=== PATIENT | male | born 1940 | race Two or more races ===

== ENCOUNTER 2021-12-16 11:50 | Inpatient (IN) | payer OTHER, MEDICAID ==
[~2021-12-16] VITALS: Ht 175.3 cm; Wt 88.5 kg
[2021-12-16] MEDS ORDERED: LOVA20TA4 PO (12:51)
[2021-12-16] MEDS ORDERED: LISI40TA11 PO (12:52)
[2021-12-16] MEDS ORDERED: METO-159 PO (12:54)
[2021-12-16] MEDS ORDERED: AMLO-489 PO (12:55)
[2021-12-16] MEDS ORDERED: METF-370 PO ×2 (12:56→13:00)
[2021-12-16] MEDS ORDERED: GABA250S2 PO (12:58)
[2021-12-16 13:05] LABS: Basophils # (auto) 0 10 ^3/uL (0-0.2); Basophils % (auto) 0.4 % (0.0-2.0); Eosinophils # (auto) 0.1 10 ^3/uL (0-0.8); Eosinophils % (auto) 0.5 % (0.0-7.0); Hematocrit 39.8 % (41.0-53.0); Hemoglobin 13.3 g/dL (13.5-17.5); Mean Corpuscular Hemoglobin 30.6 pg (28.0-32.0); Mean Corpuscular Hgb Conc. 33.5 g/dL (32.0-36.0); Mean Corpuscular Volume 91.2 fL (80.0-100.0); Monocytes # (auto) 0.7 10 ^3/uL (0-1.3); Monocytes % (auto) 6.8 % (0.0-12.0); Neutrophils # (auto) 7.8 10 ^3/uL (1.6-8.6); Neutrophils % (auto) 73.3 % (37.0-80.0); Red Blood Cells 4.36 10^6/uL (4.5-5.90); Red Cell Distribution Width 14.1 % (11.8-14.3); White Blood Cell 10.7 10^3/uL (4.4-10.8)
[2021-12-16 13:08] LABS: Albumin 3.5 g/dL (3.4-5.0); Calcium 9.1 mg/dL (8.5-10.1); Magnesium 2.2 mg/dL (1.6-2.6); Potassium 3.6 mmol/L (3.5-5.1)
[2021-12-16 13:14] LABS: BUN/Creatinine Ratio 19.1; Bilirubin, Total 0.4 mg/dL (0.2-1.0); Total Protein 6.6 g/dL (6.4-8.2)
[2021-12-16] MEDS ORDERED: cefTRIAXone 1GM/50ML D5W 50 ML IV ONE (17:30)
[2021-12-16] MEDS ORDERED: AZITHROMYCIN 500MG/ 250ML 250 ML IV ONE (17:30)
[2021-12-16] MEDS ORDERED: LEVO750T64 PO (18:57)
[2021-12-16] MEDS ORDERED: IOHEXOL 350 MG/ML 100ML IJ ONE ×2 (21:01→21:28)
[2021-12-17] MEDS ORDERED: HYDROcodone-ACET 5/325MG TAB PO PRN (09:15)
[2021-12-17] MEDS ORDERED: NITROGLYCERIN 0.4 MG SL TAB SL PRN (09:15)
[2021-12-17] MEDS ORDERED: ONDANSETRON HCL 4 MG/2 ML VIAL IV PRN (09:15)
[2021-12-17] MEDS ORDERED: ACETAMINOPHEN 325 MG TAB PO PRN ×2 (09:15)
[2021-12-17] MEDS ORDERED: MORPHINE SULFATE 4 MG/ML SYR/VIAL IV PRN (09:15)
[2021-12-17] MEDS ORDERED: cefTRIAXone 1GM/50ML D5W 50 ML IV ONE (09:30)
[2021-12-17] MEDS ORDERED: ALBUTEROL SULF 2.5 MG/0.5ML(0.5%) NEB SOLN NEB PRN (09:30)
[2021-12-17] MEDS ORDERED: hydrALAZINE HCL 20 MG/ML VL IV PRN (09:30)
[2021-12-17] MEDS ORDERED: DEXTROSE (50%) 50ML SYRG IV PRN (09:30)
[2021-12-17] MEDS ORDERED: IPRATROPIUM BROM 0.5 MG/2.5ML INH SOL NEB PRN (09:30)
[2021-12-17] MEDS: DOXYCYCLINE 100MG/250ML 250 ML IV SCH ×2 (10:00→22:16)
[2021-12-17] MEDS: ENOXAPARIN SOD 40 MG/0.4 ML SYRINGE SC SCH (10:00)
[2021-12-17] MEDS ORDERED: PATIENTS OWN MEDICATION (Metoprolol Tartrate 100 MG) PO SCH (10:00)
[2021-12-17] MEDS ORDERED: AZITHROMYCIN 500MG/ 250ML 250 ML IV SCH (10:00)
[2021-12-17 10:05] VITALS: BP 184/78
[2021-12-17] MEDS: GABAPENTIN 100 MG CAP PO SCH (10:09)
[2021-12-17] MEDS: amLODIPine BESYLATE 5 MG TAB PO SCH (10:09)
[2021-12-17] MEDS: LISINOPRIL 20 MG TAB PO SCH (10:10)
[2021-12-17 10:14] LABS: Calcium 8.9 mg/dL (8.5-10.1); Potassium 4.2 mmol/L (3.5-5.1)
[2021-12-17 10:17] LABS: BUN/Creatinine Ratio 13.7
[2021-12-17 10:35] LABS: Basophils # (auto) 0 10 ^3/uL (0-0.2); Basophils % (auto) 0.5 % (0.0-2.0); Eosinophils # (auto) 0 10 ^3/uL (0-0.8); Eosinophils % (auto) 0.4 % (0.0-7.0); Hematocrit 39.3 % (41.0-53.0); Hemoglobin 13.3 g/dL (13.5-17.5); Lymphocytes # (auto) 1.5 10 ^3/uL (0.4-5.4); Lymphocytes % (auto) 14.6 % (10.0-50.0); Mean Corpuscular Hemoglobin 30.9 pg (28.0-32.0); Mean Corpuscular Hgb Conc. 33.9 g/dL (32.0-36.0); Monocytes # (auto) 0.8 10 ^3/uL (0-1.3); Monocytes % (auto) 7.8 % (0.0-12.0); Neutrophils # (auto) 7.9 10 ^3/uL (1.6-8.6); Neutrophils % (auto) 76.7 % (37.0-80.0); Red Blood Cells 4.32 10^6/uL (4.5-5.90); Red Cell Distribution Width 13.7 % (11.8-14.3); White Blood Cell 10.3 10^3/uL (4.4-10.8)
[2021-12-17 10:56] LABS: INR 1.2 (0.9-1.15); Partial Thromboplastin Time 28.3 sec (23.6-33.0)
[2021-12-17 10:57] LABS: Cholesterol 117 mg/dL (< 200); Triglycerides 70 mg/dL (< 150)
[2021-12-17 11:00] LABS: HDL Cholesterol 57 mg/dL (40-59); LDL Cholesterol 53 mg/dL (< 100)
[2021-12-17] MEDS: IPRATROPIUM BROM 0.5 MG/2.5ML INH SOL NEB SCH ×2 (11:57→19:14)
[2021-12-17] MEDS: ALBUTEROL SULF 2.5 MG/0.5ML(0.5%) NEB SOLN NEB SCH ×2 (11:57→19:14)
[2021-12-17 11:59] VITALS: BP 148/72
[2021-12-17] MEDS: InsuLIN REG 1unit/0.01ml Soln (100units/ml) SC SCH ×3 (12:27→22:16)
[2021-12-17] MEDS: ACCU-CHEK COMFORT CURVE STRIP VI SCH ×3 (12:27→22:18)
[2021-12-17 13:00] VITALS: BP 153/73
[2021-12-17] MEDS: SODIUM CHLOR 0.9% PF (SALINE LOCK) 10ML VIAL/SYR IV SCH ×2 (13:01→22:16)
[2021-12-17] MEDS ORDERED: LIDOCAINE 2%HCL (LOCAL ANESTH.) INJ 10ml MDV ONE (14:54)
[2021-12-17 17:00] VITALS: BP 192/80
[2021-12-17 18:36] VITALS: BP 168/72
[2021-12-17] MEDS ORDERED: TEMAZEPAM 15 MG CAP PO PRN (22:00)
[2021-12-17 22:14] VITALS: BP 153/74
[2021-12-17] MEDS: ATORVASTATIN 20 MG TAB PO SCH (22:16)
[2021-12-18 03:58] VITALS: BP 165/87
[2021-12-18] MEDS: SODIUM CHLOR 0.9% PF (SALINE LOCK) 10ML VIAL/SYR IV SCH ×3 (06:00→22:10)
[2021-12-18] MEDS: InsuLIN REG 1unit/0.01ml Soln (100units/ml) SC SCH ×4 (06:13→22:00)
[2021-12-18] MEDS: ACCU-CHEK COMFORT CURVE STRIP VI SCH ×4 (06:13→22:10)
[2021-12-18 06:36] LABS: Basophils # (auto) 0 10 ^3/uL (0-0.2); Basophils % (auto) 0.2 % (0.0-2.0); Eosinophils # (auto) 0.1 10 ^3/uL (0-0.8); Eosinophils % (auto) 0.5 % (0.0-7.0); Hematocrit 37.9 % (41.0-53.0); Hemoglobin 13.3 g/dL (13.5-17.5); Lymphocytes # (auto) 1.6 10 ^3/uL (0.4-5.4); Lymphocytes % (auto) 12.1 % (10.0-50.0); Mean Corpuscular Hemoglobin 31.5 pg (28.0-32.0); Mean Corpuscular Volume 90.2 fL (80.0-100.0); Monocytes # (auto) 0.9 10 ^3/uL (0-1.3); Neutrophils # (auto) 10.6 10 ^3/uL (1.6-8.6); Neutrophils % (auto) 80.2 % (37.0-80.0); Nucleated Red Blood Cells % 0.1 %; Red Cell Distribution Width 13.7 % (11.8-14.3); White Blood Cell 13.3 10^3/uL (4.4-10.8)
[2021-12-18 06:55] LABS: Potassium 3.1 mmol/L (3.5-5.1)
[2021-12-18 07:06] LABS: Albumin 3.3 g/dL (3.4-5.0); BUN/Creatinine Ratio 13.1; Bilirubin, Total 0.7 mg/dL (0.2-1.0); Calcium 8.7 mg/dL (8.5-10.1); Total Protein 6.3 g/dL (6.4-8.2)
[2021-12-18] MEDS: ALBUTEROL SULF 2.5 MG/0.5ML(0.5%) NEB SOLN NEB SCH ×3 (07:32→18:33)
[2021-12-18 09:00] VITALS: BP 170/73
[2021-12-18] MEDS: GABAPENTIN 100 MG CAP PO SCH (09:54)
[2021-12-18] MEDS: LISINOPRIL 20 MG TAB PO SCH (09:54)
[2021-12-18] MEDS: amLODIPine BESYLATE 5 MG TAB PO SCH (09:55)
[2021-12-18] MEDS: DOXYCYCLINE 100MG/250ML 250 ML IV SCH ×2 (09:56→22:16)
[2021-12-18] MEDS: ENOXAPARIN SOD 40 MG/0.4 ML SYRINGE SC SCH (09:56)
[2021-12-18] MEDS: POTASSIUM CHL 20 Meq TABLET PO SCH (12:21)
[2021-12-18 13:00] VITALS: BP 160/63
[2021-12-18] MEDS: cefTRIAXone 1GM/50ML D5W 50 ML IV SCH (14:10)
[2021-12-18 17:00] VITALS: BP 149/69
[2021-12-18] MEDS: FUROSEMIDE 40 MG/4 ML VIAL IV SCH (17:49)
[2021-12-18] MEDS: IPRATROPIUM BROM 0.5 MG/2.5ML INH SOL NEB SCH (18:33)
[2021-12-18 21:49] VITALS: BP 160/66
[2021-12-18] MEDS: APIXABAN 5 MG TAB PO SCH (22:16)
[2021-12-18] MEDS: ATORVASTATIN 20 MG TAB PO SCH (22:16)
[2021-12-19 05:21] VITALS: BP 154/58
[2021-12-19] MEDS: FUROSEMIDE 40 MG/4 ML VIAL IV SCH ×2 (06:00→18:18)
[2021-12-19] MEDS: SODIUM CHLOR 0.9% PF (SALINE LOCK) 10ML VIAL/SYR IV SCH ×3 (06:00→21:46)
[2021-12-19] MEDS: ACCU-CHEK COMFORT CURVE STRIP VI SCH ×4 (06:33→21:46)
[2021-12-19] MEDS: InsuLIN REG 1unit/0.01ml Soln (100units/ml) SC SCH ×4 (06:41→21:46)
[2021-12-19] MEDS: ALBUTEROL SULF 2.5 MG/0.5ML(0.5%) NEB SOLN NEB SCH ×3 (06:44→18:52)
[2021-12-19] MEDS: IPRATROPIUM BROM 0.5 MG/2.5ML INH SOL NEB SCH ×3 (06:44→18:52)
[2021-12-19 07:49] LABS: Basophils # (auto) 0 10 ^3/uL (0-0.2); Basophils % (auto) 0.3 % (0.0-2.0); Eosinophils # (auto) 0.2 10 ^3/uL (0-0.8); Eosinophils % (auto) 1.3 % (0.0-7.0); Hematocrit 36.3 % (41.0-53.0); Hemoglobin 12.5 g/dL (13.5-17.5); Mean Corpuscular Hemoglobin 30.6 pg (28.0-32.0); Mean Corpuscular Hgb Conc. 34.3 g/dL (32.0-36.0); Mean Corpuscular Volume 89.1 fL (80.0-100.0); Monocytes # (auto) 1.3 10 ^3/uL (0-1.3); Neutrophils # (auto) 9.1 10 ^3/uL (1.6-8.6); Neutrophils % (auto) 72.4 % (37.0-80.0); Red Blood Cells 4.07 10^6/uL (4.5-5.90); Red Cell Distribution Width 13.5 % (11.8-14.3); White Blood Cell 12.6 10^3/uL (4.4-10.8)
[2021-12-19 07:57] LABS: Calcium 8.6 mg/dL (8.5-10.1); Potassium 3.4 mmol/L (3.5-5.1)
[2021-12-19 07:59] LABS: BUN/Creatinine Ratio 13.8
[2021-12-19 08:53] VITALS: BP 145/74
[2021-12-19] MEDS: cefTRIAXone 1GM/50ML D5W 50 ML IV SCH (09:00)
[2021-12-19] MEDS ORDERED: POTASSIUM CHL 10MEQ/50ML 50 ML IV SCH (09:30)
[2021-12-19] MEDS ORDERED: hydrALAZINE HCL 20 MG/ML VL IV PRN (09:30)
[2021-12-19] MEDS: amLODIPine BESYLATE 5 MG TAB PO SCH (10:00)
[2021-12-19] MEDS: GABAPENTIN 100 MG CAP PO SCH (10:00)
[2021-12-19] MEDS: APIXABAN 5 MG TAB PO SCH ×2 (10:00→21:53)
[2021-12-19] MEDS: POTASSIUM CHL 20 Meq TABLET PO SCH (10:00)
[2021-12-19] MEDS: DOXYCYCLINE 100MG/250ML 250 ML IV SCH ×2 (10:00→22:00)
[2021-12-19] MEDS: LISINOPRIL 20 MG TAB PO SCH (10:00)
[2021-12-19 13:35] VITALS: BP 147/80
[2021-12-19 16:42] VITALS: BP 103/52
[2021-12-19] MEDS ORDERED: TAMSULOSIN HYDROCHLORIDE 0.4 MG CAP PO SCH (18:00)
[2021-12-19] MEDS: POTASSIUM CHL 20MEQ/100ML 100 ML IV SCH ×2 (21:00→21:34)
[2021-12-19] MEDS: ATORVASTATIN 20 MG TAB PO SCH (21:53)
[2021-12-19 22:00] VITALS: BP 119/59
[2021-12-20 05:00] VITALS: BP 142/62
[2021-12-20] MEDS: ACCU-CHEK COMFORT CURVE STRIP VI SCH ×2 (06:09→11:30)
[2021-12-20] MEDS: FUROSEMIDE 40 MG/4 ML VIAL IV SCH (06:23)
[2021-12-20] MEDS: InsuLIN REG 1unit/0.01ml Soln (100units/ml) SC SCH ×2 (06:24→11:30)
[2021-12-20] MEDS: SODIUM CHLOR 0.9% PF (SALINE LOCK) 10ML VIAL/SYR IV SCH ×2 (06:29→14:00)
[2021-12-20 06:31] LABS: INR 1.21 (0.9-1.15); Partial Thromboplastin Time 35.1 sec (23.6-33.0)
[2021-12-20 06:34] LABS: Basophils # (auto) 0 10 ^3/uL (0-0.2); Basophils % (auto) 0.4 % (0.0-2.0); Eosinophils # (auto) 0.2 10 ^3/uL (0-0.8); Eosinophils % (auto) 2.2 % (0.0-7.0); Hematocrit 33.3 % (41.0-53.0); Hemoglobin 11.8 g/dL (13.5-17.5); Lymphocytes # (auto) 2.1 10 ^3/uL (0.4-5.4); Lymphocytes % (auto) 22.6 % (10.0-50.0); Mean Corpuscular Hemoglobin 31.2 pg (28.0-32.0); Mean Corpuscular Hgb Conc. 35.3 g/dL (32.0-36.0); Mean Corpuscular Volume 88.3 fL (80.0-100.0); Monocytes # (auto) 1.2 10 ^3/uL (0-1.3); Monocytes % (auto) 12.3 % (0.0-12.0); Neutrophils # (auto) 5.9 10 ^3/uL (1.6-8.6); Neutrophils % (auto) 62.5 % (37.0-80.0); Red Blood Cells 3.77 10^6/uL (4.5-5.90); Red Cell Distribution Width 13.6 % (11.8-14.3); White Blood Cell 9.4 10^3/uL (4.4-10.8)
[2021-12-20 06:35] LABS: BUN/Creatinine Ratio 16.7; Calcium 7.9 mg/dL (8.5-10.1); Magnesium 2.1 mg/dL (1.6-2.6); Potassium 3.8 mmol/L (3.5-5.1)
[2021-12-20] MEDS: ALBUTEROL SULF 2.5 MG/0.5ML(0.5%) NEB SOLN NEB SCH ×2 (07:12→11:24)
[2021-12-20] MEDS: IPRATROPIUM BROM 0.5 MG/2.5ML INH SOL NEB SCH ×2 (07:12→11:24)
[2021-12-20] MEDS: cefTRIAXone 1GM/50ML D5W 50 ML IV SCH (09:00)
[2021-12-20 09:30] VITALS: BP 149/54
[2021-12-20] MEDS: APIXABAN 5 MG TAB PO SCH (09:31)
[2021-12-20] MEDS: GABAPENTIN 100 MG CAP PO SCH (09:32)
[2021-12-20] MEDS: POTASSIUM CHL 20 Meq TABLET PO SCH (09:32)
[2021-12-20] MEDS: LISINOPRIL 20 MG TAB PO SCH (09:33)
[2021-12-20] MEDS: amLODIPine BESYLATE 5 MG TAB PO SCH (09:33)
[2021-12-20] MEDS: DOXYCYCLINE 100MG/250ML 250 ML IV SCH (10:57)
[2021-12-20 13:00] VITALS: BP 121/85
[2021-12-20 16:56] VITALS: BP 146/81
[2021-12-20 17:14] VITALS: BP 134/59
== END 2021-12-20 18:19 | disposition home health service (06) | DRG 291 ==
LOC: ER 11:50 → TELE 12-17 09:01 → TELE-WESTW 12-17 11:20
PROVIDERS: ADMIT Registered Nurse; ATTEND Internal Medicine
DX: I11.0 Hypertensive heart disease with heart failure (principal); I50.33 Acute on chronic diastolic (congestive) heart failure; J98.11 Atelectasis; E11.9 Type 2 diabetes mellitus without complications; E87.6 Hypokalemia; E78.00 Pure hypercholesterolemia, unspecified; E78.5 Hyperlipidemia, unspecified; I48.91 Unspecified atrial fibrillation; T50.2X5A Adverse effect of carbonic-anhydrase inhibitors, benzothiadiazides and other diuretics, initial encounter; R00.1 Bradycardia, unspecified; Z20.822 Contact with and (suspected) exposure to COVID-19; N40.1 Benign prostatic hyperplasia with lower urinary tract symptoms; R33.8 Other retention of urine; Y92.89 Other specified places as the place of occurrence of the external cause; Z79.899 Other long term (current) drug therapy; Z79.84 Long term (current) use of oral hypoglycemic drugs
CPT/HCPCS: 36415; 36600; 71045; 71046; 71275; 80048; 80053; 80061; 82805; 82962; 83036; 83735; 83880; 84100; 84443; 84484; 85025; 85379; 85610; 85730; 87040; 93005; 93306; 93886; 93970; 94640; 96365; 96367; G0378; J0696; J1815; J2001; J3480; J3490

== ENCOUNTER 2022-02-02 11:49 | Inpatient (IN) | payer OTHER, MEDICAID ==
[~2022-02-02] VITALS: Ht 175.3 cm; Wt 93.8 kg
[~2022-02-02 11:49] MED LIST: AMLO-489 PO; GABA250S2 PO; LISI40TA11 PO; LOVA20TA4 PO; METF-370 PO
[2022-02-02] MEDS ORDERED: SODIUM CHLORIDE 0.9% 1,000 ML IV ONE (12:45)
[2022-02-02 12:58] LABS: Basophils # (auto) 0 10 ^3/uL (0-0.2); Basophils % (auto) 0.2 % (0.0-2.0); Eosinophils # (auto) 0 10 ^3/uL (0-0.8); Eosinophils % (auto) 0.1 % (0.0-7.0); Hematocrit 40.7 % (41.0-53.0); Lymphocytes # (auto) 0.8 10 ^3/uL (0.4-5.4); Lymphocytes % (auto) 5.5 % (10.0-50.0); Mean Corpuscular Hemoglobin 29.9 pg (28.0-32.0); Mean Corpuscular Volume 93.5 fL (80.0-100.0); Monocytes # (auto) 0.5 10 ^3/uL (0-1.3); Monocytes % (auto) 3.9 % (0.0-12.0); Neutrophils # (auto) 12.7 10 ^3/uL (1.6-8.6); Neutrophils % (auto) 90.3 % (37.0-80.0); Red Blood Cells 4.35 10^6/uL (4.5-5.90); Red Cell Distribution Width 13.9 % (11.8-14.3); White Blood Cell 14.1 10^3/uL (4.4-10.8)
[2022-02-02 13:05] LABS: Urine Bacteria NONE SEEN /hpf (None Seen); Urine Blood 3+ /uL (Negative); Urine Specific Gravity 1.014 (1.001-1.035); Urine WBC 3573 /hpf (0 - 3); Urine WBC Clumps PRESENT /hpf (None Seen)
[2022-02-02 13:20] LABS: Albumin 1.8 g/dL (3.4-5.0); Calcium 8.9 mg/dL (8.5-10.1); Magnesium 2.7 mg/dL (1.6-2.6); Potassium 5.1 mmol/L (3.5-5.1)
[2022-02-02 13:23] LABS: Bilirubin, Total 0.3 mg/dL (0.2-1.0); Total Protein 5.6 g/dL (6.4-8.2)
[2022-02-02 13:52] LABS: BUN/Creatinine Ratio 17.8
[2022-02-02] MEDS ORDERED: cefTRIAXone 1GM/50ML D5W 50 ML IV ONE ×2 (17:30→18:30)
[2022-02-02] MEDS ORDERED: InsuLIN REG 1unit/0.01ml Soln (100units/ml) IV ONE (17:30)
[2022-02-02] MEDS ORDERED: MORPHINE SULFATE INJECTION 2 MG/ML SYRG IV PRN ×2 (18:00→18:30)
[2022-02-02] MEDS ORDERED: SODIUM CHLORIDE 0.9% 1,000 ML IV SCH ×3 (18:00→22:00)
[2022-02-02] MEDS ORDERED: INSULIN LANTUS (GLARGINE) 1 /0.01ml (100units/ml) SC ONE (18:00)
[2022-02-02] MEDS ORDERED: SODIUM CHLORIDE 0.9% 2,000 ML IV ONE (18:00)
[2022-02-02] MEDS ORDERED: InsuLIN R (HUMAN) 100 UNITS in SODIUM CHL 0.9% 99 ML IV SCH (18:00)
[2022-02-02] MEDS ORDERED: NITROGLYCERIN 0.4 MG SL TAB SL PRN (18:00)
[2022-02-02] MEDS ORDERED: DEXTROSE (50%) 50ML SYRG IV PRN (18:00)
[2022-02-02] MEDS ORDERED: LACTATED RINGER'S 2,000 ML IV ONE (18:00)
[2022-02-02] MEDS: ACCU-CHEK COMFORT CURVE STRIP VI SCH ×5 (18:18→23:58)
[2022-02-02] MEDS ORDERED: LORazepam 0.5 MG TAB PO PRN (18:30)
[2022-02-02] MEDS ORDERED: ACETAMINOPHEN 325 MG TAB PO PRN (18:30)
[2022-02-02] MEDS ORDERED: FAMOTIDINE (10MG/ML) 2ML VL IV ONE (18:30)
[2022-02-02] MEDS ORDERED: hydrALAZINE HCL 20 MG/ML VL IV PRN (18:30)
[2022-02-02] MEDS ORDERED: SOD CHL 0.9%/ KCL 20MEQ 1,000 ML IV PRN (18:30)
[2022-02-02] MEDS ORDERED: AZITHROMYCIN 500MG/ 250ML 250 ML IV ONE (18:30)
[2022-02-02] MEDS ORDERED: ONDANSETRON HCL 4 MG/2 ML VIAL IV PRN (18:30)
[2022-02-02] MEDS ORDERED: DOCUSATE SOD 100 MG CAP PO PRN (18:30)
[2022-02-02] MEDS ORDERED: LABETALOL HCL 5 MG/ML 4ML SYRINGE IV PRN (18:45)
[2022-02-02 19:31] LABS: Magnesium 2.8 mg/dL (1.6-2.6); Phosphorus 3.3 mg/dL (2.5-4.90); Potassium 4.5 mmol/L (3.5-5.1)
[2022-02-02 19:33] LABS: Basophils # (auto) 0 10 ^3/uL (0-0.2); Basophils % (auto) 0.2 % (0.0-2.0); Eosinophils # (auto) 0 10 ^3/uL (0-0.8); Eosinophils % (auto) 0.1 % (0.0-7.0); Hematocrit 39.6 % (41.0-53.0); Hemoglobin 12.9 g/dL (13.5-17.5); Lymphocytes % (auto) 6.4 % (10.0-50.0); Mean Corpuscular Hemoglobin 29.6 pg (28.0-32.0); Mean Corpuscular Hgb Conc. 32.6 g/dL (32.0-36.0); Mean Corpuscular Volume 90.9 fL (80.0-100.0); Monocytes # (auto) 0.7 10 ^3/uL (0-1.3); Monocytes % (auto) 4.7 % (0.0-12.0); Neutrophils # (auto) 13.8 10 ^3/uL (1.6-8.6); Neutrophils % (auto) 88.6 % (37.0-80.0); Nucleated Red Blood Cells % 0.1 %; Red Blood Cells 4.36 10^6/uL (4.5-5.90); Red Cell Distribution Width 13.6 % (11.8-14.3); White Blood Cell 15.6 10^3/uL (4.4-10.8)
[2022-02-02 19:34] LABS: Lactic Acid w/Reflex 3.2 mmol/L (0.4-2.0)
[2022-02-02 21:46] LABS: INR 1.29 (0.9-1.15); Partial Thromboplastin Time 33.6 sec (23.6-33.0)
[2022-02-02 23:10] LABS: Albumin 1.9 g/dL (3.4-5.0); Magnesium 2.8 mg/dL (1.6-2.6); Potassium 4.4 mmol/L (3.5-5.1)
[2022-02-02 23:17] LABS: BUN/Creatinine Ratio 19.6; Bilirubin, Total 0.2 mg/dL (0.2-1.0); Phosphorus 2.7 mg/dL (2.5-4.90)
[2022-02-03] VITALS (40 sets, daily range): BP systolic 95–150; BP diastolic 35–104
[2022-02-03] MEDS ORDERED: SODIUM CHLORIDE 0.9% 1,000 ML IV SCH
[2022-02-03] MEDS: ACCU-CHEK COMFORT CURVE STRIP VI SCH ×11 (01:30→23:37)
[2022-02-03 02:30] LABS: Basophils # (auto) 0 10 ^3/uL (0-0.2); Basophils % (auto) 0.1 % (0.0-2.0); Eosinophils # (auto) 0 10 ^3/uL (0-0.8); Eosinophils % (auto) 0.1 % (0.0-7.0); Hematocrit 37.3 % (41.0-53.0); Hemoglobin 12.3 g/dL (13.5-17.5); Lymphocytes # (auto) 1.4 10 ^3/uL (0.4-5.4); Lymphocytes % (auto) 8.6 % (10.0-50.0); Mean Corpuscular Hemoglobin 29.4 pg (28.0-32.0); Mean Corpuscular Hgb Conc. 32.8 g/dL (32.0-36.0); Mean Corpuscular Volume 89.5 fL (80.0-100.0); Monocytes # (auto) 0.8 10 ^3/uL (0-1.3); Monocytes % (auto) 4.5 % (0.0-12.0); Neutrophils # (auto) 14.6 10 ^3/uL (1.6-8.6); Neutrophils % (auto) 86.7 % (37.0-80.0); Red Blood Cells 4.17 10^6/uL (4.5-5.90); Red Cell Distribution Width 13.3 % (11.8-14.3); White Blood Cell 16.8 10^3/uL (4.4-10.8)
[2022-02-03 02:38] LABS: INR 1.24 (0.9-1.15); Partial Thromboplastin Time 30.1 sec (23.6-33.0)
[2022-02-03] MEDS: D5W/SOD CHLO 0.9% 1,000 ML IV PRN ×2 (03:02→10:38)
[2022-02-03 03:07] LABS: Anion Gap 8 (5-15); Blood Urea Nitrogen 55 mg/dL (7-18); Carbon Dioxide 25 mmol/L (21-32); Chloride 112 mmol/L (98-107); Glucose 281 mg/dL (74-106); Potassium 4.1 mmol/L (3.5-5.1); Sodium 145 mmol/L (136-145)
[2022-02-03 03:08] LABS: Alanine Aminotransferase 14 U/L (16-61); Albumin 1.6 g/dL (3.4-5.0); Alkaline Phosphatase 124 U/L (45-117); Aspartate Aminotransferase 12 U/L (15-37); BUN/Creatinine Ratio 22.4; Bilirubin, Total 0.2 mg/dL (0.2-1.0); Calcium 8.9 mg/dL (8.5-10.1); GFR African American 33 mL/min; GFR Non-African American 27 mL/min; Total Protein 5.2 g/dL (6.4-8.2)
[2022-02-03 03:26] LABS: Lipase 30 U/L (73-393); Magnesium 2.6 mg/dL (1.6-2.6)
[2022-02-03 03:27] LABS: Creatine Kinase IFCC 25 U/L (39-308)
[2022-02-03 03:38] LABS: Phosphorus 2.8 mg/dL (2.5-4.90)
[2022-02-03 03:39] LABS: Cholesterol 67 mg/dL (< 200); HDL Cholesterol 26 mg/dL (40-59); LDL Cholesterol 27 mg/dL (< 100); Triglycerides 82 mg/dL (< 150)
[2022-02-03 04:28] LABS: CRP High Sensitivity > 19 mg/dL (< 0.3)
[2022-02-03] MEDS: cefTRIAXone 1GM/50ML D5W 50 ML IV SCH (09:11)
[2022-02-03] MEDS ORDERED: AZITHROMYCIN 500MG/ 250ML 250 ML IV SCH (10:00)
[2022-02-03] MEDS: INSULIN LANTUS (GLARGINE) 1 /0.01ml (100units/ml) SC SCH (10:27)
[2022-02-03] MEDS: ENOXAPARIN SOD 30 MG/0.3 ML SYRINGE SC SCH (10:29)
[2022-02-03] MEDS ORDERED: DEXTROSE (50%) 50ML SYRG IV PRN (11:30)
[2022-02-03 12:24] LABS: BUN/Creatinine Ratio 24.9; Calcium 8.6 mg/dL (8.5-10.1); Potassium 4.5 mmol/L (3.5-5.1)
[2022-02-03] MEDS: InsuLIN REG 1unit/0.01ml Soln (100units/ml) SC SCH ×4 (12:35→23:40)
[2022-02-03] MEDS: SODIUM CHLORIDE 0.9% 1,000 ML IV SCH ×3 (12:36→23:34)
[2022-02-03] MEDS ORDERED: HALOPERIDOL LACTATE 5 MG/ML INJ VIAL IM PRN (14:15)
[2022-02-03] MEDS ORDERED: LORazepam 2MG/ML-1ML VIAL IV ONE (14:15)
[2022-02-03 21:21] LABS: Folate (Folic Acid) 4.65 ng/mL (5.38-24)
[2022-02-04] VITALS (29 sets, daily range): BP systolic 89–134; BP diastolic 45–87
[2022-02-04 03:45] LABS: Basophils # (auto) 0 10 ^3/uL (0-0.2); Basophils % (auto) 0.2 % (0.0-2.0); Eosinophils # (auto) 0.1 10 ^3/uL (0-0.8); Eosinophils % (auto) 0.7 % (0.0-7.0); Hematocrit 35.8 % (41.0-53.0); Hemoglobin 11.7 g/dL (13.5-17.5); Lymphocytes # (auto) 1.7 10 ^3/uL (0.4-5.4); Lymphocytes % (auto) 9.4 % (10.0-50.0); Mean Corpuscular Hemoglobin 29.3 pg (28.0-32.0); Mean Corpuscular Hgb Conc. 32.8 g/dL (32.0-36.0); Mean Corpuscular Volume 89.3 fL (80.0-100.0); Monocytes # (auto) 0.8 10 ^3/uL (0-1.3); Monocytes % (auto) 4.4 % (0.0-12.0); Neutrophils # (auto) 15.1 10 ^3/uL (1.6-8.6); Neutrophils % (auto) 85.3 % (37.0-80.0); Red Blood Cells 4.01 10^6/uL (4.5-5.90); Red Cell Distribution Width 13.2 % (11.8-14.3); White Blood Cell 17.7 10^3/uL (4.4-10.8)
[2022-02-04] MEDS: ACCU-CHEK COMFORT CURVE STRIP VI SCH ×6 (04:00→23:44)
[2022-02-04] MEDS: InsuLIN REG 1unit/0.01ml Soln (100units/ml) SC SCH ×6 (04:00→23:46)
[2022-02-04 04:03] LABS: Calcium 8.1 mg/dL (8.5-10.1); Magnesium 2.5 mg/dL (1.6-2.6); Potassium 4.2 mmol/L (3.5-5.1)
[2022-02-04 04:05] LABS: BUN/Creatinine Ratio 29.7
[2022-02-04] MEDS: SOD CHL 0.45% 1,000 ML IV SCH ×2 (05:58→16:35)
[2022-02-04] MEDS ORDERED: FAMOTIDINE (10MG/ML) 2ML VL IV SCH (10:00)
[2022-02-04] MEDS: cefTRIAXone 1GM/50ML D5W 50 ML IV SCH (10:06)
[2022-02-04] MEDS: ENOXAPARIN SOD 30 MG/0.3 ML SYRINGE SC SCH (10:06)
[2022-02-04] MEDS: FOLIC ACID 1 MG in D5W 5% 50 ML INJ SCH (10:12)
[2022-02-04] MEDS: INSULIN LANTUS (GLARGINE) 1 /0.01ml (100units/ml) SC SCH (10:26)
[2022-02-04] MEDS: AMOXICILLIN/CLAVULAN 500 MG TAB PO SCH ×2 (15:28→22:19)
[2022-02-04] MEDS ORDERED: RIV15T PO (16:07)
[2022-02-04] MEDS ORDERED: TAMS0.4C36 PO (16:07)
[2022-02-04] MEDS ORDERED: CHOL20007 PO (16:07)
[2022-02-04] MEDS ORDERED: HYDR25TA4 PO (16:07)
[2022-02-04] MEDS ORDERED: ACET-1156 PO (16:07)
[2022-02-05] MEDS: SOD CHL 0.45% 1,000 ML IV SCH ×3 (01:53→11:41)
[2022-02-05] MEDS: ACCU-CHEK COMFORT CURVE STRIP VI SCH ×5 (03:49→20:22)
[2022-02-05] MEDS: InsuLIN REG 1unit/0.01ml Soln (100units/ml) SC SCH ×5 (03:49→20:20)
[2022-02-05 05:00] VITALS: BP 139/67
[2022-02-05 05:22] LABS: Basophils # (auto) 0 10 ^3/uL (0-0.2); Basophils % (auto) 0.4 % (0.0-2.0); Eosinophils # (auto) 0.2 10 ^3/uL (0-0.8); Eosinophils % (auto) 1.5 % (0.0-7.0); Hematocrit 35.4 % (41.0-53.0); Hemoglobin 11.7 g/dL (13.5-17.5); Lymphocytes # (auto) 1.5 10 ^3/uL (0.4-5.4); Lymphocytes % (auto) 10.5 % (10.0-50.0); Mean Corpuscular Hemoglobin 29.4 pg (28.0-32.0); Mean Corpuscular Hgb Conc. 33.1 g/dL (32.0-36.0); Mean Corpuscular Volume 88.8 fL (80.0-100.0); Monocytes # (auto) 0.8 10 ^3/uL (0-1.3); Monocytes % (auto) 5.6 % (0.0-12.0); Neutrophils # (auto) 11.6 10 ^3/uL (1.6-8.6); Red Blood Cells 3.98 10^6/uL (4.5-5.90); Red Cell Distribution Width 13.3 % (11.8-14.3); White Blood Cell 14.1 10^3/uL (4.4-10.8)
[2022-02-05 05:41] LABS: BUN/Creatinine Ratio 29.7; Calcium 8.1 mg/dL (8.5-10.1); Potassium 4.1 mmol/L (3.5-5.1)
[2022-02-05] MEDS: AMOXICILLIN/CLAVULAN 500 MG TAB PO SCH ×3 (06:12→21:18)
[2022-02-05 08:54] VITALS: BP 140/66
[2022-02-05] MEDS: HYDROcodone-ACET 5/325MG TAB PO PRN (09:26)
[2022-02-05] MEDS: INSULIN LANTUS (GLARGINE) 1 /0.01ml (100units/ml) SC SCH (09:38)
[2022-02-05] MEDS: ENOXAPARIN SOD 40 MG/0.4 ML SYRINGE SC SCH (09:38)
[2022-02-05] MEDS: FOLIC ACID 1 MG in D5W 5% 50 ML INJ SCH (11:03)
[2022-02-05 13:00] VITALS: BP 107/46
[2022-02-05 17:00] VITALS: BP 133/56
[2022-02-05 21:45] VITALS: BP 127/63
[2022-02-06] MEDS: ACCU-CHEK COMFORT CURVE STRIP VI SCH ×6 (00:59→20:11)
[2022-02-06] MEDS: InsuLIN REG 1unit/0.01ml Soln (100units/ml) SC SCH ×6 (00:59→20:10)
[2022-02-06 05:00] VITALS: BP 127/57
[2022-02-06 05:19] LABS: Basophils # (auto) 0 10 ^3/uL (0-0.2); Basophils % (auto) 0.4 % (0.0-2.0); Eosinophils # (auto) 0.1 10 ^3/uL (0-0.8); Hematocrit 33.9 % (41.0-53.0); Hemoglobin 11.3 g/dL (13.5-17.5); Lymphocytes # (auto) 1.7 10 ^3/uL (0.4-5.4); Lymphocytes % (auto) 12.7 % (10.0-50.0); Mean Corpuscular Hemoglobin 29.5 pg (28.0-32.0); Mean Corpuscular Hgb Conc. 33.4 g/dL (32.0-36.0); Mean Corpuscular Volume 88.3 fL (80.0-100.0); Monocytes # (auto) 0.7 10 ^3/uL (0-1.3); Monocytes % (auto) 5.2 % (0.0-12.0); Neutrophils # (auto) 10.8 10 ^3/uL (1.6-8.6); Neutrophils % (auto) 80.7 % (37.0-80.0); Nucleated Red Blood Cells % 0.1 %; Red Blood Cells 3.84 10^6/uL (4.5-5.90); Red Cell Distribution Width 13.4 % (11.8-14.3); White Blood Cell 13.3 10^3/uL (4.4-10.8)
[2022-02-06 05:29] LABS: Potassium 4.2 mmol/L (3.5-5.1)
[2022-02-06 05:33] LABS: BUN/Creatinine Ratio 28.4
[2022-02-06] MEDS: AMOXICILLIN/CLAVULAN 500 MG TAB PO SCH ×3 (06:44→22:14)
[2022-02-06 09:00] VITALS: BP 131/66
[2022-02-06] MEDS: ENOXAPARIN SOD 40 MG/0.4 ML SYRINGE SC SCH (10:06)
[2022-02-06] MEDS: INSULIN LANTUS (GLARGINE) 1 /0.01ml (100units/ml) SC SCH (10:08)
[2022-02-06] MEDS: FOLIC ACID 1 MG in D5W 5% 50 ML INJ SCH (10:13)
[2022-02-06 13:05] VITALS: BP 108/58
[2022-02-06 17:00] VITALS: BP 121/57
[2022-02-06] MEDS: SOD CHL 0.45% 1,000 ML IV SCH ×2 (18:00→22:20)
[2022-02-06] MEDS: HYDROcodone-ACET 5/325MG TAB PO PRN (18:28)
[2022-02-06 22:00] VITALS: BP 128/59
[2022-02-06] MEDS: metroNIDAZOLE 500 MG TAB PO SCH (22:14)
[2022-02-07] MEDS: ACCU-CHEK COMFORT CURVE STRIP VI SCH ×7 (00:45→23:48)
[2022-02-07] MEDS: InsuLIN REG 1unit/0.01ml Soln (100units/ml) SC SCH ×7 (04:00→23:48)
[2022-02-07] MEDS: SOD CHL 0.45% 1,000 ML IV SCH ×3 (04:27→23:48)
[2022-02-07 05:00] VITALS: BP 128/71
[2022-02-07] MEDS: metroNIDAZOLE 500 MG TAB PO SCH (06:39)
[2022-02-07] MEDS: AMOXICILLIN/CLAVULAN 500 MG TAB PO SCH (06:39)
[2022-02-07 08:00] VITALS: BP 137/54
[2022-02-07 12:00] VITALS: BP 114/54
[2022-02-07] MEDS: FOLIC ACID 1 MG in D5W 5% 50 ML INJ SCH (12:15)
[2022-02-07] MEDS: ENOXAPARIN SOD 40 MG/0.4 ML SYRINGE SC SCH (12:20)
[2022-02-07] MEDS: INSULIN LANTUS (GLARGINE) 1 /0.01ml (100units/ml) SC SCH (12:23)
[2022-02-07 16:00] VITALS: BP 119/57
[2022-02-07 22:00] VITALS: BP 128/57
[2022-02-07] MEDS ORDERED: AMOXICILLIN/CLAVULAN 500 MG TAB PO SCH (22:00)
[2022-02-07] MEDS: AMOXICILLIN/CLAVUL 875 MG TAB PO SCH (22:22)
[2022-02-08] MEDS: ACCU-CHEK COMFORT CURVE STRIP VI SCH ×3 (04:57→11:16)
[2022-02-08] MEDS: InsuLIN REG 1unit/0.01ml Soln (100units/ml) SC SCH ×3 (04:57→11:16)
[2022-02-08 05:00] VITALS: BP 139/64
[2022-02-08 06:22] LABS: Basophils # (auto) 0 10 ^3/uL (0-0.2); Basophils % (auto) 0.2 % (0.0-2.0); Eosinophils # (auto) 0.1 10 ^3/uL (0-0.8); Eosinophils % (auto) 0.9 % (0.0-7.0); Hematocrit 34.6 % (41.0-53.0); Hemoglobin 11.7 g/dL (13.5-17.5); Lymphocytes # (auto) 2.2 10 ^3/uL (0.4-5.4); Lymphocytes % (auto) 14.3 % (10.0-50.0); Mean Corpuscular Hemoglobin 29.5 pg (28.0-32.0); Mean Corpuscular Hgb Conc. 33.8 g/dL (32.0-36.0); Mean Corpuscular Volume 87.2 fL (80.0-100.0); Monocytes # (auto) 0.7 10 ^3/uL (0-1.3); Monocytes % (auto) 4.6 % (0.0-12.0); Neutrophils # (auto) 12.4 10 ^3/uL (1.6-8.6); Nucleated Red Blood Cells % 0.1 %; Red Blood Cells 3.97 10^6/uL (4.5-5.90); Red Cell Distribution Width 13.2 % (11.8-14.3); White Blood Cell 15.5 10^3/uL (4.4-10.8)
[2022-02-08 06:42] LABS: BUN/Creatinine Ratio 19.7
[2022-02-08 09:04] VITALS: BP 113/55
[2022-02-08] MEDS: FOLIC ACID 1 MG in D5W 5% 50 ML INJ SCH (10:00)
[2022-02-08] MEDS: SOD CHL 0.45% 1,000 ML IV SCH (10:00)
[2022-02-08] MEDS: ENOXAPARIN SOD 40 MG/0.4 ML SYRINGE SC SCH (11:08)
[2022-02-08] MEDS: AMOXICILLIN/CLAVUL 875 MG TAB PO SCH (11:09)
[2022-02-08] MEDS: INSULIN LANTUS (GLARGINE) 1 /0.01ml (100units/ml) SC SCH (11:09)
[2022-02-08 13:09] VITALS: BP 113/55
[2022-02-08] MEDS ORDERED: AMOX500T86 PO (13:41)
== END 2022-02-08 15:07 | disposition home health service (06) | DRG 637 ==
LOC: ER 11:49 → TELE 17:53 → ICU WEST 23:37 → TELE-WESTW 02-04 22:57
PROVIDERS: ADMIT Hospitalist; ATTEND Internal Medicine Pulmonary Disease
DX: E11.00 Type 2 diabetes mellitus with hyperosmolarity without nonketotic hyperglycemic-hyperosmolar coma (NKHHC) (principal); G93.41 Metabolic encephalopathy; J18.9 Pneumonia, unspecified organism; N39.0 Urinary tract infection, site not specified; I48.19 Other persistent atrial fibrillation; N18.4 Chronic kidney disease, stage 4 (severe); J90 Pleural effusion, not elsewhere classified; N17.9 Acute kidney failure, unspecified; E11.10 Type 2 diabetes mellitus with ketoacidosis without coma; Z20.822 Contact with and (suspected) exposure to COVID-19; E11.22 Type 2 diabetes mellitus with diabetic chronic kidney disease; E78.5 Hyperlipidemia, unspecified; E53.8 Deficiency of other specified B group vitamins; N40.1 Benign prostatic hyperplasia with lower urinary tract symptoms; I12.9 Hypertensive chronic kidney disease with stage 1 through stage 4 chronic kidney disease, or unspecified chronic kidney disease; R33.8 Other retention of urine; E11.40 Type 2 diabetes mellitus with diabetic neuropathy, unspecified; Z91.19 Patient's noncompliance with other medical treatment and regimen; Z79.4 Long term (current) use of insulin
CPT/HCPCS: 36415; 36600; 70450; 71045; 76775; 80048; 80053; 80061; 81001; 82010; 82550; 82607; 82728; 82746; 82805; 82962; 83036; 83605; 83615; 83690; 83735; 83880; 83930; 84100; 84443; 84484; 85025; 85379; 85610; 85652; 85730; 86141; 87040; 87081; 87086; 87088; 87186; 87493; 92610; 93005; 93971; 96361; 96365; 96375; 97163; 99291; G0378; J0696; J1815; J3490; J7060

== ENCOUNTER 2022-02-10 21:00 | Emergency (ER) | payer OTHER, MEDICAID ==
[~2022-02-10] VITALS: Ht 177.8 cm; Wt 99.8 kg
[~2022-02-10 21:00] MED LIST changes: +ACET-1156 PO; +AMOX500T86 PO; +CHOL20007 PO; +HYDR25TA4 PO; +RIV15T PO; +TAMS0.4C36 PO
[2022-02-10 21:55] LABS: Basophils # (auto) 0.1 10 ^3/uL (0-0.2); Basophils % (auto) 0.4 % (0.0-2.0); Eosinophils # (auto) 0.1 10 ^3/uL (0-0.8); Hematocrit 33.9 % (41.0-53.0); Hemoglobin 11.6 g/dL (13.5-17.5); Lymphocytes # (auto) 1.8 10 ^3/uL (0.4-5.4); Lymphocytes % (auto) 14.3 % (10.0-50.0); Mean Corpuscular Hemoglobin 29.7 pg (28.0-32.0); Mean Corpuscular Hgb Conc. 34.1 g/dL (32.0-36.0); Mean Corpuscular Volume 87.1 fL (80.0-100.0); Monocytes # (auto) 0.7 10 ^3/uL (0-1.3); Monocytes % (auto) 5.4 % (0.0-12.0); Neutrophils # (auto) 9.9 10 ^3/uL (1.6-8.6); Neutrophils % (auto) 78.9 % (37.0-80.0); Nucleated Red Blood Cells % 0.1 %; Red Blood Cells 3.89 10^6/uL (4.5-5.90); Red Cell Distribution Width 13.6 % (11.8-14.3); White Blood Cell 12.5 10^3/uL (4.4-10.8)
[2022-02-10 22:02] LABS: Urine Bacteria FEW /hpf (None Seen); Urine Blood 2+ /uL (Negative); Urine Hyaline Cast MOD /lpf (0 - 2); Urine Mucus FEW (None Seen); Urine Specific Gravity 1.018 (1.001-1.035); Urine WBC 682 /hpf (0 - 3); Urine WBC Clumps PRESENT /hpf (None Seen)
[2022-02-10] MEDS ORDERED: SODIUM CHLORIDE 0.9% 500 ML IV ONE (22:15)
[2022-02-10 22:16] LABS: Albumin 1.5 g/dL (3.4-5.0); Calcium 7.6 mg/dL (8.5-10.1)
[2022-02-10 22:18] LABS: BUN/Creatinine Ratio 24.5
[2022-02-10 22:21] LABS: Bilirubin, Total 0.3 mg/dL (0.2-1.0); Total Protein 4.3 g/dL (6.4-8.2)
[2022-02-10] MEDS ORDERED: FUROSEMIDE 20 MG/2 ML VIAL IV ONE (22:45)
[2022-02-11 00:52] LABS: INR 1.25 (0.9-1.15); Partial Thromboplastin Time 27.5 sec (23.6-33.0)
[2022-02-11 00:57] VITALS: BP 112/58
== END 2022-02-11 01:19 | disposition short-term general hospital (02) ==
LOC: EDBD 21:00 → ER 21:00
DX: I21.4 Non-ST elevation (NSTEMI) myocardial infarction (principal); R41.82 Altered mental status, unspecified; E88.09 Other disorders of plasma-protein metabolism, not elsewhere classified; R62.7 Adult failure to thrive; R09.02 Hypoxemia; I63.9 Cerebral infarction, unspecified; I62.9 Nontraumatic intracranial hemorrhage, unspecified; E11.9 Type 2 diabetes mellitus without complications; E78.5 Hyperlipidemia, unspecified; Z68.36 Body mass index [BMI] 36.0-36.9, adult
CPT/HCPCS: 36415; 70450; 71045; 80053; 81001; 82140; 83605; 83735; 83880; 84484; 85025; 85610; 85730; 93005; 96361; 96374; 99291; 99292; J1940

== ENCOUNTER 2022-03-29 12:43 | Emergency (ER) | payer OTHER, MEDICAID ==
[~2022-03-29] VITALS: Ht 152.4 cm; Wt 81.6 kg
[2022-03-29 14:27] LABS: Basophils # (auto) 0.1 10 ^3/uL (0-0.2); Basophils % (auto) 0.8 % (0.0-2.0); Eosinophils # (auto) 0.1 10 ^3/uL (0-0.8); Eosinophils % (auto) 0.7 % (0.0-7.0); Hematocrit 36.6 % (41.0-53.0); Hemoglobin 11.8 g/dL (13.5-17.5); Lymphocytes # (auto) 3.1 10 ^3/uL (0.4-5.4); Lymphocytes % (auto) 29.4 % (10.0-50.0); Mean Corpuscular Hemoglobin 28.7 pg (28.0-32.0); Mean Corpuscular Hgb Conc. 32.2 g/dL (32.0-36.0); Mean Corpuscular Volume 89.2 fL (80.0-100.0); Monocytes # (auto) 0.6 10 ^3/uL (0-1.3); Monocytes % (auto) 5.8 % (0.0-12.0); Neutrophils # (auto) 6.6 10 ^3/uL (1.6-8.6); Neutrophils % (auto) 63.3 % (37.0-80.0); Red Cell Distribution Width 16.4 % (11.8-14.3); White Blood Cell 10.4 10^3/uL (4.4-10.8)
[2022-03-29 14:33] LABS: INR 1.18 (0.9-1.15); Partial Thromboplastin Time 29.2 sec (23.6-33.0)
[2022-03-29 16:22] LABS: Urine Bacteria FEW /hpf (None Seen); Urine Blood 3+ /uL (Negative); Urine Budding Yeast MANY /hpf (None Seen); Urine Specific Gravity 1.012 (1.001-1.035); Urine WBC 232 /hpf (0 - 3)
[2022-03-29 16:27] VITALS: BP 116/50
[2022-03-29] MEDS ORDERED: CIPR-173 PO (16:47)
== END 2022-03-29 17:16 | disposition home or self-care (01) ==
LOC: ER 12:43
DX: R31.9 Hematuria, unspecified (principal); N39.0 Urinary tract infection, site not specified; I10 Essential (primary) hypertension; E11.9 Type 2 diabetes mellitus without complications; E78.5 Hyperlipidemia, unspecified; E03.9 Hypothyroidism, unspecified; Z90.89 Acquired absence of other organs; Z86.73 Personal history of transient ischemic attack (TIA), and cerebral infarction without residual deficits; Z79.2 Long term (current) use of antibiotics; Z79.899 Other long term (current) drug therapy
CPT/HCPCS: 36415; 51702; 81001; 85025; 85610; 85730

== ENCOUNTER 2022-04-13 21:31 | Emergency (ER) | payer OTHER, MEDICAID ==
[~2022-04-13] VITALS: Ht 175.3 cm; Wt 77.1 kg
[~2022-04-13 21:31] MED LIST changes: +CIPR-173 PO
[2022-04-13 23:15] LABS: Urine Bacteria NONE SEEN /hpf (None Seen); Urine Blood 2+ /uL (Negative); Urine Budding Yeast FEW /hpf (None Seen); Urine Specific Gravity 1.015 (1.001-1.035); Urine WBC 3607 /hpf (0 - 3); Urine WBC Clumps PRESENT /hpf (None Seen)
[2022-04-14] MEDS ORDERED: CEPH-509 PO (01:19)
[2022-04-14] MEDS ORDERED: CEPHALEXIN 250 MG CAP PO ONE (02:45)
[2022-04-14 03:06] VITALS: BP 127/46
== END 2022-04-14 03:19 | disposition home or self-care (01) ==
LOC: ER 21:31
DX: T83.091A Other mechanical complication of indwelling urethral catheter, initial encounter (principal); E11.9 Type 2 diabetes mellitus without complications; E78.5 Hyperlipidemia, unspecified; I10 Essential (primary) hypertension; Z86.73 Personal history of transient ischemic attack (TIA), and cerebral infarction without residual deficits; Z46.6 Encounter for fitting and adjustment of urinary device
CPT/HCPCS: 51702; 81001